=== PATIENT | male | born 1955 | race Caucasian/White ===

== ENCOUNTER 2018-03-05 16:24 | Observation (INO) | payer OTHER ==
[2018-03-05] MEDS ORDERED: ASPIRIN 81 MG TABLET, CHEWABLE PO ONE (16:30)
[2018-03-05 16:40] LABS: ABSOLUTE BASOPHILS # (AUTO) 0.1 10^3/uL (0.0-0.2); ABSOLUTE EOSINOPHILS # (AUTO) 0.3 10^3/uL (0.0-0.6); ABSOLUTE LYMPHOCYTES (AUTO) 3.4 10^3/uL (0.5-4.7); ABSOLUTE MONOCYTES (AUTO) 1.2 10^3/uL (0.1-1.4); ABSOLUTE NEUT (AUTO) 7.6 10^3/uL (1.7-8.2); BASOPHILS % (AUTO) 0.9 % (0-2); EOSINOPHILS % (AUTO) 2.3 % (0-6); HEMATOCRIT 39.6 % (37.9-51.0); HEMOGLOBIN 13.2 g/dL (13.5-17.0); LYMPHOCYTES % (AUTO) 27.1 % (13-45); MEAN CORPUSCULAR HEMOGLOBIN 28.9 pg (27.0-33.4); MEAN CORPUSCULAR HGB CONC 33.3 g/dL (32.0-36.0); MEAN CORPUSCULAR VOLUME 87 fl (80-97); MONOCYTES % (AUTO) 9.4 % (3-13); PLATELET COUNT 292 10^3/uL (150-450); RED BLOOD COUNT 4.56 10^6/uL (4.35-5.55); RED CELL DISTRIBUTION WIDTH 15.8 % (11.5-14.0); SEGMENTED NEUTROPHILS % (AUTO) 60.3 % (42-78); TOTAL CELLS COUNTED % (AUTO) 100 %; WHITE BLOOD COUNT 12.6 10^3/uL (4.0-10.5)
--- NOTE | 2018-03-05 16:41 | ER Document Report ---
ED Syncope and Near Syncope - General Chief Complaint: Near Syncope Stated Complaint: NEAR SYNCOPE Time Seen by Provider: 03/05/18 16:28 Notes: 62-year-old male to emergency department chief complaint of near syncope. Patient states that he is new in town. Moved from [place]. Has not seen a regular doctor. On Coumadin. Had stent placed in his left lower extremity due to vascular occlusions approximately 6 weeks ago. Is supposed to be on Coumadin. Is supposed to be on a bunch of medications. He has stopped some of them but does not know if that is what is going on. He was started on some Wellbutrin. Took it for about 3 or 4 days and he did not like the way it made him feel so stopped it yesterday. Has not felt well for couple of days. Did not feel like eating today but went to a bar and had some beer and felt a little dizzy and felt like he was going to pass out. Denies passing out. Denies any chest pain or shortness of breath. Denies any symptoms at this time. States that he feels better after getting some IV fluids by EMS. TRAVEL OUTSIDE OF THE [place] IN LAST 30 DAYS: No - HPI Symptoms prior to episode: Dizziness, Sweaty - Related Data Allergies/Adverse Reactions: No Known Allergies Allergy (Verified 03/05/18 16:32) Past Medical History - General Information source: Patient - Social History Smoking Status: Unknown if Ever Smoked Frequency of alcohol use: Social Drug Abuse: None Lives with: Spouse/Significant other Family History: Reviewed & Not Pertinent Patient has suicidal ideation: No Patient has homicidal ideation: No Endocrine Medical History: Reports: Hx Diabetes Mellitus Type 2 Renal/ Medical History: Denies: Hx Peritoneal Dialysis Past Surgical History: Reports: Hx Cardiac Catheterization - stent, Hx Cardiac Surgery - CABG Review of Systems - Review of Systems Notes: Constitutional: denies: Chills, Diaphoresis, Fever, Malaise,. Complain of Weakness EENT: denies: Eye discharge, Blurred vision, Tearing, Double vision, Nose congestion, Nose discharge, Throat swelling, Mouth pain Cardiovascular: denies: Palpitations, Heart racing, Orthopnea, Dyspnea, Chest pain. complains of dizziness and almost passing out Respiratory: denies: Cough, Hurts to breathe, Wheezing, Shortness of breath Gastrointestinal: denies: Abdominal pain, Diarrhea, Nausea, Vomiting, Black stools, bright red blood in stool Genitourinary: denies: Burning, Dysuria, Discharge, Frequency, Flank pain, Hematuria Musculoskeletal/extremities:. States that had recent vascular surgery to the left lower extremity. Denies: Joint pain, Joint swelling, Muscle pain, Muscle stiffness, back pain Hematologic/Lymphatic: denies: Anemia, Easy bleeding, Easy bruising, Blood clots Neurological/Psychological: denies: Confusion, Dementia, Depression, Loss of consciousness Skin: No lesions, no masses, no skin breakdown, no abscesses Physical Exam - Vital signs Vitals: Temp Resp Pulse Ox 98.1 F 18 100 03/05/18 16:25 03/05/18 16:25 03/05/18 16:25 Interpretation: Normal - General General appearance: Appears well, Alert - HEENT Head: Normocephalic, Atraumatic Eyes: Normal Pupils: PERRL - Respiratory Respiratory status: No respiratory distress Chest status: Nontender Breath sounds: Normal Chest palpation: Normal - Cardiovascular Rhythm: Regular Heart sounds: Normal auscultation Murmur: No - Abdominal Inspection: Normal Distension: No distension Bowel sounds: Normal Tenderness: Nontender Organomegaly: No organomegaly - Back Back: Normal, Nontender - Extremities General upper extremity: Normal inspection, Nontender, Normal color, Normal ROM , Normal temperature General lower extremity: Other - There are healing incisions bilateral left lower extremity. There is no active drainage noted at this time. Not tense. Posterior tibialis pulses present in the left lower extremity. - Neurological Neuro grossly intact: Yes Cognition: Normal Orientation: AAOx4 Sharee Coma Scale Eye Opening: Spontaneous Sharee Coma Scale Verbal: Oriented Elroy Coma Scale Motor: Obeys Commands Sharee Coma Scale Total: 15 Speech: Normal Motor strength normal: LUE, RUE, LLE, RLE Sensory: Normal - Psychological Associated symptoms: Normal affect, Normal mood - Skin Skin Temperature: Warm Skin Moisture: Dry Skin Color: Normal Course - Re-evaluation Re-evalutation: 03/05/18 18:39 Patient's has a slightly elevated WBC count. Was subtherapeutic on his INR with an INR of 0.9 with recent vascular surgery in the last 6 weeks there was concern that it could potentially have pulmonary embolism causing his episodes of CT angiogram was performed which was unremarkable. Chest x-ray unremarkable. CTA negative for significant pulmonary embolism. Blood pressure transiently low heart rate is 67. Alcohol level was unremarkable. Getting fluid bolus at this time. 03/05/18 19:15 Patient reevaluated. Feeling a little bit better. Based on the fact the patient had a near syncopal episode, as a patient with a recent surgery, has a history of cardiac disease, had transient hypotension. Full more comfortable observing overnight for repeat cardiac labs and at least cardiac monitoring. Will consult with hospitalist for admit at this time. - Vital Signs Vital signs: Temp Pulse Resp BP Pulse Ox 98.1 F 19 132/57 H 99 03/05/18 16:25 03/05/18 19:21 03/05/18 19:21 03/05/18 19:21 - Laboratory Result Diagrams: 03/05/18 16:27 03/05/18 17:10 Laboratory results interpreted by me: 03/05/18 03/05/18 16:27 17:10 WBC 12.6 H Hgb 13.2 L RDW 15.8 H Glucose 153 H - EKG Interpretation by [place] EKG shows normal: Sinus rhythm, Hull, Intervals, QRS Complexes, ST-T Waves Critical Care Note - Critical Care Note Total time excluding time spent on procedures (mins): 35 Comments: hypotension, near syncope Discharge - Discharge Clinical Impression: Syncope, near, Transient hypotension Condition: Good Disposition: ADMITTED OBSERVATION Admitting Provider[facility] Admitted: Telemetry
--- NOTE | 2018-03-05 17:01 | RADIOLOGY REPORT (SQ) ---
EXAM DESCRIPTION: CHEST SINGLE VIEW COMPLETED DATE/TIME: 03/05/2018 4:46 pm REASON FOR STUDY: syncope COMPARISON: None. EXAM PARAMETERS: NUMBER OF VIEWS: One view. TECHNIQUE: Single frontal radiographic view of the chest acquired. RADIATION DOSE: NA LIMITATIONS: None. FINDINGS: LUNGS AND PLEURA: No opacities, masses or pneumothorax. No pleural effusion. MEDIASTINUM AND HILAR STRUCTURES: No masses. Contour normal. HEART AND VASCULAR STRUCTURES: Heart normal in size. Normal vasculature. BONES: No acute findings. HARDWARE: Patient is status post median sternotomy. OTHER: No other significant finding. IMPRESSION: NO ACUTE RADIOGRAPHIC FINDING IN THE CHEST. TECHNICAL DOCUMENTATION: JOB ID: [id number] [employer]- All Rights Reserved Reading location - IP/workstation name: [email or web address]
[2018-03-05 17:02] LABS: INTERNATIONAL RATION (INR) 0.97; PROTHROMBIN TIME 13.4 SEC (11.4-15.4)
[2018-03-05 17:03] LABS: PARTIAL THROMBOPLASTIN TIME 27.5 SEC (23.5-35.8)
[2018-03-05 17:41] LABS: ALANINE AMINOTRANSFERASE 24 U/L (21-72); ALKALINE PHOSPHATASE 66 U/L (38-126); ANION GAP 12 (5-19); ASPARTATE AMINO TRANSFERASE 18 U/L (17-59); BILIRUBIN,DIRECT 0.2 mg/dL (0.0-0.4); BILIRUBIN,TOTAL 0.6 mg/dL (0.2-1.3); BLOOD UREA NITROGEN 12 mg/dL (7-20); CALCIUM 9.8 mg/dL (8.4-10.2); CARBON DIOXIDE 25 mmol/L (22-30); CHLORIDE 103 mmol/L (98-107); CREATINE KINASE 69 U/L (55-170); GLUCOSE 153 mg/dL (75-110); POTASSIUM 4.6 mmol/L (3.6-5.0); SODIUM 140.3 mmol/L (137-145); TOTAL PROTEIN 7.2 g/dL (6.3-8.2)
[2018-03-05 17:44] LABS: ALCOHOL < 10 mg/dL (NONE DETECTED)
[2018-03-05 17:52] LABS: CREATINE KINASE MB 3.25 ng/mL (<4.55)
[2018-03-05 17:54] LABS: TROPONIN I < 0.012 ng/mL
[2018-03-05] MEDS ORDERED: WARFARIN SODIUM 5 MG TABLET PO ONE (17:59)
[2018-03-05] MEDS ORDERED: ENOXAPARIN SODIUM INJ 80 MG/0.8 ML DISP.SYRIN SUBCUT ONE (18:00)
--- NOTE | 2018-03-05 18:24 | RADIOLOGY REPORT (SQ) ---
EXAM DESCRIPTION: CTA CHEST COMPLETED DATE/TIME: 03/05/2018 6:05 pm REASON FOR STUDY: sob, recent sx, near syncope COMPARISON: Chest x-ray 03/05/2018 TECHNIQUE: CT scan of the chest performed using helical scanning technique with dynamic intravenous contrast injection. Images reviewed with lung, soft tissue and bone windows. Reconstructed coronal and sagittal MPR images reviewed. Additional 3 dimensional post-processing performed to develop Maximal Intensity Projection images (GA P). All images stored on PACS. All CT scanners at this facility use dose modulation, iterative reconstruction, and/or weight based d osing when appropriate to reduce radiation dose to as low as reasonably achievable (ALARA). [facility]: Dose Right [facility]: CareDose [facility]: Dose Right [facility]: Teradose 4D [facility]: MatsSoft CONTRAST TYPE AND DOSE: contrast/concentration: Isovue 350.00 mg/ml; Total Contrast Delivered: 76.0 ml; Total Saline Delivered: 80.0 ml Contrast bolus optimized for the pulmonary arteries. Not diagnostic for the aorta. RENAL FUNCTION: BUN 12; creatinine 1.04 RADIATION DOSE: CT Rad equipment meets quality standard of care and radiation dose reduction techniq ues were employed. CTDIvol: 14.6 - 33.1 mGy. DLP: 664 mGy-cm. . LIMITATIONS: None. FINDINGS: LUNGS AND PLEURA: No masses, infiltrates, or pneumothorax. No pleural effusions or pleura l calcifications. AORTA AND GREAT VESSELS: No aneurysm. Contrast bolus not optimized for the aorta. HEART: No pericardial effusion. Coronary stents are present. PULMONARY ARTERIES: No emboli visualized in the main pulmonary arteries or the segmental branches. HILAR AND MEDIASTINAL STRUCTURES: No identified masses or abnormal nodes. HARDWARE: Median sternotomy wires. UPPER ABDOMEN: Limited exam. Status post cholecystectomy. With a dilated common bile duct and pneum obilia. THYROID AND OTHER SOFT TISSUES: No masses. No adenopathy. BONES: No acute or significant finding. 3D MIPS: Confirm above findings. OTHER: No other significant finding. IMPRESSION: 1. No evidence of pulmonary embolus or acute cardiopulmonary abnormality. 2. Limited evaluation of the upper abdomen demonstrates cholecystectomy changes and pneumobilia. COMMENT: Quality ID # [id number]: Final reports with documentation of one or more dose reduction techniques (e.g., Automated exposure control, adjustment of the mA and/or kV according to patient size, use of iterative reconstruction technique) TECHNICAL DOCUMENTATION: JOB ID: [id number] [employer]- All Rights Reserved Reading location - IP/workstation name: [email or web address]
[2018-03-05] MEDS ORDERED: NORMAL SALINE 1000 ML 1,000 ML IV PRN ×2 (18:33→20:49)
[2018-03-05] MEDS ORDERED: PROMETHAZINE HCL 25 MG TABLET PO PRN (19:57)
[2018-03-05] MEDS ORDERED: MAG HYDROX/AL HYDROX/SIMETH SUSP 30 ML UDCUP PO PRN (19:57)
[2018-03-05] MEDS ORDERED: TEMAZEPAM 15 MG CAPSULE PO PRN (19:57)
[2018-03-05] MEDS ORDERED: ACETAMINOPHEN 325 MG TABLET PO PRN (19:57)
--- NOTE | 2018-03-05 20:50 | EKG REPORT ---
SEVERITY:- ABNORMAL ECG - SINUS RHYTHM CONSIDER ANTEROSEPTAL INFARCT : Confirmed by: Antony Cunningham 05-Mar-2018 20:49:45
--- NOTE | 2018-03-05 21:04 | PDOC H&P ---
History of Present Illness Admission Date/PCP: None Patient complains of: near syncope History of Present Illness: EWA MENDOZA is a 62 year old male who comes to the emergency department after an episode of near syncope. Patient tells me that he has not eaten anything since yesterday, he did not have breakfast but took all his medications , after noon decided to go to a bar, he had one beer and felt dizzy, lightheaded , girlfriend noticed him pale. Decided to come to the ED. Patient does not see her regular doctor. Patient is on Coumadin but his inr is supratherapeutic. Patient moved from [place]. States he is on many of medications, on Wellbutrin recently which he is stopped as did not make him feel good. Denies shortness of breath, chest pain, abdominal pain, nausea, vomiting, fever , chills, diarrhea, dysuria, hematuria or frequency. Transient hypotension which improves after IV fluids CTA negative PE, EKG sinus rhythm, first set of troponins negative. Chest x- ray unremarkable Past Medical History Cardiac Medical History: Reports: Coronary Artery Disease - CABG x3, Peripheral Vascular Disease - Left lower extremity stent placed about 2 months ago. Right lower extremity Endocrine Medical History: Reports: Diabetes Mellitus Type 2 Psychiatric Medical History: Reports: Depression Past Surgical History Past Surgical History: Reports: Cardiac Catheterization - stent, Cholecystectomy , Coronary Artery Bypass Graft - x3, Other - Right toe amputation as diabetic complication Social History Information Source: Patient Lives with: Spouse/Significant other Smoking Status: Current Every Day Smoker - Pack per day Frequency of Alcohol Use: Social Drugs: None Family History Family History: Reviewed & Not Pertinent Parental Family History Reviewed: No - He did not meet his parents Children Family History Reviewed: NA Sibling(s) Family History Reviewed.: Yes - Negative Medication/Allergy Allergies/Adverse Reactions: No Known Allergies Allergy (Verified 03/05/18 16:32) Review of Systems Review of Systems: As outlined in the HPI, all others negative Physical Exam Vital Signs: Temp Pulse Resp BP Pulse Ox 98.1 F 14 118/58 L 98 03/05/18 16:25 03/05/18 20:01 03/05/18 20:01 03/05/18 19:41 Intake & Output 03/04/18 03/05/18 03/06/18 06:59 06:59 06:59 Weight 83.2 kg Additional comments: General appearance: Well-developed, alert and cooperative, and appears to be in no acute distress Head: Normocephalic Eyes: PEERL, EOMI, vision is grossly intact. Ears: External auditory canal and tympanic membranes clear, hearing grossly intact. Nose: No nasal discharge. Throat: Oral cavity and pharynx normal. No inflammation, swelling, exudate or lesions. Neck: Neck supple, nontender without lymphadenopathy, masses or thyromegaly. Cardiac: Normal S1 and S2. No S3, S4 or murmurs. Rhythm is regular. There is 1+ edema, cyanosis or pallor. Extremities are warm and well perfused. Capillary refill is less than 2 seconds. No carotid bruits. Lungs: Clear to auscultation and percussion without rales, mild rhonchi, mild wheezing, minimal diminished breath sounds. Not using accessory muscles. Abdomen: Positive bowel sounds. Soft. Nondistended, nontender. No guarding or rebound. No masses. No hepatosplenomegaly Extremities: No significant deformity or joint abnormality. Peripheral pulses intact. Right toe amputation. Scars from surgery both extremities Neurological: Cranial nerves II through XII grossly intact. Strength and sensation symmetric and intact throughout. Reflexes 2+ throughout. Skin: Skin normal color, texture and turgor with no lesions or eruptions, warm and dry. Psychiatric: The mental examination revealed the patient was oriented to person , place, and time. The patient was able to demonstrate good judgment on recent , without hallucinations, abnormal affect or abnormal behaviors. Results Laboratory Results: 03/05/18 16:27 03/05/18 17:10 03/05/18 03/05/18 03/05/18 16:27 16:27 17:10 WBC 12.6 H RBC 4.56 Hgb 13.2 L Hct 39.6 MCV 87 MCH 28.9 MCHC 33.3 RDW 15.8 H Plt Count 292 Seg Neutrophils % 60.3 Lymphocytes % 27.1 Monocytes % 9.4 Eosinophils % 2.3 Basophils % 0.9 Absolute Neutrophils 7.6 Absolute Lymphocytes 3.4 Absolute Monocytes 1.2 Absolute Eosinophils 0.3 Absolute Basophils 0.1 Sodium Cancelled 140.3 Potassium Cancelled 4.6 Chloride Cancelled 103 Carbon Dioxide Cancelled 25 Anion Gap Cancelled 12 BUN Cancelled 12 Creatinine Cancelled 1.04 Est GFR ( Amer) Cancelled > 60 Est GFR (Non-Af Amer) Cancelled > 60 Glucose Cancelled 153 H Calcium Cancelled 9.8 Total Bilirubin Cancelled 0.6 AST Cancelled 18 ALT Cancelled 24 Alkaline Phosphatase Cancelled 66 Total Protein Cancelled 7.2 Albumin Cancelled 4.0 03/05/18 03/05/18 03/05/18 16:27 16:27 17:10 Creatine Kinase Cancelled 69 CK-MB (CK-2) Cancelled Troponin I Cancelled 03/05/18 17:10 Creatine Kinase CK-MB (CK-2) 3.25 Troponin I < 0.012 Impressions: Chest X-Ray 03/05/18 16:30 IMPRESSION: NO ACUTE RADIOGRAPHIC FINDING IN THE CHEST. Chest/Abdomen CTA 03/05/18 17:24 IMPRESSION: 1. No evidence of pulmonary embolus or acute cardiopulmonary abnormality. 2. Limited evaluation of the upper abdomen demonstrates cholecystectomy changes and pneumobilia. Assessment & Plan - Diagnosis (1) Syncope, near Is this a current diagnosis for this admission?: Yes Plan: Patient with near syncopal episode which improved IV fluids. As he has h/o of peripheral vascular disease, CAD, felt safe to keep the patient under observation, on telemetry monitoring, will do cardiac enzymes 3. Most likely this episode has been triggered by his fasting since the day before and has been vasovagal. (2) Transient hypotension Is this a current diagnosis for this admission?: Yes Plan: Improved with IV fluids, will give the patient with IV fluids overnight for good hydration. Orthostatic vital signs were not done in the emergency department and the patient already had 1 L of IV fluids. Will request orthostatic vital signs (3) Diabetes mellitus type 2 in nonobese Is this a current diagnosis for this admission?: Yes Plan: Accu-Cheks q. before meals and at bedtime, insulin sliding scale, hypoglycemia protocol. Will resume home diabetic medication. Hemoglobin A1c in the morning (4) Peripheral vascular disease Is this a current diagnosis for this admission?: Yes Plan: Patient is supposed to be on Coumadin but apparently is noncompliant with his medications. I will reinitiate him on anticoagulation. (5) Smoker Is this a current diagnosis for this admission?: Yes Plan: Will place 21 mg per day of nicotine patch. - Time Time Spent: 30 to 50 Minutes
[2018-03-05 21:50] LABS: APPEARANCE,URINE CLEAR; BILIRUBIN,URINE NEGATIVE (NEGATIVE); COLOR,URINE YELLOW; GLUCOSE, URINE NEGATIVE (NEGATIVE); KETONES,URINE NEGATIVE (NEGATIVE); LEUKOCYTE ESTERASE,URINE NEGATIVE (NEGATIVE); NITRITE,URINE NEGATIVE (NEGATIVE); PROTEIN,URINE NEGATIVE (NEGATIVE); URINE SPECIFIC GRAVITY 1.042; UROBILINOGEN,URINE NEGATIVE mg/dL (<2.0)
[2018-03-05 21:59] LABS: URINE AMPHETAMINES SCREEN NEGATIVE; URINE BARBITURATES SCREEN NEGATIVE; URINE BENZODIAZEPINES SCREEN NEGATIVE; URINE COCAINE SCREEN NEGATIVE; URINE MARIJUANA (THC) SCREEN NEGATIVE; URINE METHADONE SCREEN NEGATIVE; URINE PHENCYCLIDINE SCREEN NEGATIVE
[2018-03-06 03:22] LABS: ANION GAP 8 (5-19); BLOOD UREA NITROGEN 12 mg/dL (7-20); CARBON DIOXIDE 25 mmol/L (22-30); CHLORIDE 108 mmol/L (98-107); GLUCOSE 165 mg/dL (75-110); POTASSIUM 4.1 mmol/L (3.6-5.0); SODIUM 140.9 mmol/L (137-145)
[2018-03-06] MEDS ORDERED: GLUCAGON,HUMAN RECOMB 1 MG INJ IM PRN (03:29)
[2018-03-06] MEDS ORDERED: DEXTROSE 50%-WATER 25 GM/50 ML DISP.SYRIN IV PRN ×2 (03:29)
[2018-03-06] MEDS ORDERED: INSULIN LISPRO 100 UNIT/ML 3 ML VIAL SUBCUT PRN (03:29)
[2018-03-06] MEDS ORDERED: DEXTROSE 40% GEL 15 GM TUBE PO PRN ×2 (03:29)
[2018-03-06] MEDS ORDERED: ENOXAPARIN SODIUM INJ 40 MG/0.4 ML DISP.SYRIN SUBCUT SCH (10:00)
[2018-03-06] MEDS: NORMAL SALINE 1000 ML 1,000 ML IV PRN (14:47)
--- NOTE | 2018-03-06 17:50 | PDOC PROGRESS REPORT ---
Subjective Progress Note for:: 03/06/18 Subjective:: 62 y.o. M who presented to the ED 03/05 for a near syncopal episode. PMH includes CAD, CABG x3 (ASA and plavix), PAD - Left lower extremity stent placed about 2 months ago (Coumadin). Right lower extremity bypass graft "years ago." The patient was seen this morning on rounds, states he is feeling 'much better' following IVF resuscitation. Syncopal episode believed to be related to anorexia 24 hours followed by consumption of EtOH. Unfortunately, the patient' s INR is subtherapeutic (0.94). The patient states he last had his INR checked 3 weeks ago in [place] and his levels were 'normal.' Since moving to [place], [place] 3 weeks ago, the patient has not established himself with a primary care doctor. The patient admits that he is close to running out of his Coumadin but is very adamant that he has been taking the medication as directed. Plan to discharge the patient home on Lovenox to bridge to therapeutic Coumadin dosing. Will require assistance from discharge planning because the patient previously had Medicaid when living in [place], and his insurance coverage did not transfer to [place]. Reason For Visit: NEAR SYNCOPE Physical Exam Vital Signs: Temp Pulse Resp BP Pulse Ox 97.7 F 63 16 135/49 H 99 03/06/18 15:23 03/06/18 15:23 03/06/18 15:23 03/06/18 15:23 03/06/18 15:23 Intake & Output 03/05/18 03/06/18 03/07/18 06:59 06:59 06:59 Intake Total 1240 Output Total 675 300 Balance -675 940 General appearance: PRESENT: no acute distress, well-developed, well-nourished Head exam: PRESENT: atraumatic, normocephalic Eye exam: PRESENT: conjunctiva pink, EOMI, PERRLA. ABSENT: scleral icterus Ear exam: PRESENT: normal external ear exam Mouth exam: PRESENT: moist, tongue midline Neck exam: ABSENT: carotid bruit, JVD, lymphadenopathy, thyromegaly Respiratory exam: PRESENT: clear to auscultation wilfredo. ABSENT: rales, rhonchi, wheezes Cardiovascular exam: PRESENT: RRR. ABSENT: diastolic murmur, rubs, systolic murmur Pulses: PRESENT: normal dorsalis pedis pul Vascular exam: PRESENT: normal capillary refill GI/Abdominal exam: PRESENT: normal bowel sounds, soft. ABSENT: distended, guarding, mass, organolmegaly, rebound, tenderness Rectal exam: PRESENT: deferred Extremities exam: PRESENT: full ROM. ABSENT: calf tenderness, clubbing, pedal edema Musculoskeletal exam: PRESENT: ambulatory, full ROM Neurological exam: PRESENT: alert, awake, oriented to person, oriented to place , oriented to time, oriented to situation Psychiatric exam: PRESENT: appropriate affect, normal mood. ABSENT: homicidal ideation, suicidal ideation Skin exam: PRESENT: dry, intact, warm. ABSENT: cyanosis, rash Results Laboratory Results: 03/06/18 02:40 03/05/18 03/06/18 20:51 02:40 Sodium 140.9 Potassium 4.1 Chloride 108 H Carbon Dioxide 25 Anion Gap 8 BUN 12 Creatinine 0.74 Est GFR ( Amer) > 60 Est GFR (Non-Af Amer) > 60 Glucose 165 H Calcium 9.0 Urine Color YELLOW Urine Appearance CLEAR Urine pH 5.0 Ur Specific Joice 1.042 Urine Protein NEGATIVE Urine Glucose (UA) NEGATIVE Urine Ketones NEGATIVE Urine Blood NEGATIVE Urine Nitrite NEGATIVE Ur Leukocyte Esterase NEGATIVE Urine WBC (Auto) 1 Urine RBC (Auto) 0 03/06/18 03/06/18 03/06/18 02:40 13:22 13:22 Troponin I < 0.012 < 0.012 NT-Pro-B Natriuret Pep 402 Impressions: Chest X-Ray 03/05/18 16:30 IMPRESSION: NO ACUTE RADIOGRAPHIC FINDING IN THE CHEST. Chest/Abdomen CTA 03/05/18 17:24 IMPRESSION: 1. No evidence of pulmonary embolus or acute cardiopulmonary abnormality. 2. Limited evaluation of the upper abdomen demonstrates cholecystectomy changes and pneumobilia. Status: Imported from PACS Assessment & Plan - Diagnosis (1) Syncope, near Is this a current diagnosis for this admission?: Yes Plan: Witnessed near syncopal episode Etiology believed to be secondary to anorexia times 24 hours followed by EtOH consumption CT head negative Significant improvement with IVF resuscitation Normal orthostatic vital signs (2) Subtherapeutic anticoagulation Is this a current diagnosis for this admission?: Yes Plan: INR 9.4 Patient states he takes his Coumadin as directed Resume home dosing schedule Initiate Lovenox SC 1mg/kg Will require SC Lovenox upon discharge to bridge to therapeutic Coumadin level Will require daily/QOD INR checks until therapeutic Requesting assistance from discharge planning as patient does not have insurance Barring any complications, plan to discharge home tomorrow (3) Peripheral vascular disease Is this a current diagnosis for this admission?: Yes Plan: Patient endorses history of PAD History of bypass graft in RLE Recent stent placement in LLE in December 2017 at [facility] in [place] Continue home dose warfarin - Time Time Spent with patient: 25-34 minutes Medications reviewed and adjusted accordingly: Yes Anticipated discharge: Home Within: within 24 hours - Inpatient Certification Based on my medical assessment, after consideration of the patient's comorbidities, presenting symptoms, or acuity I expect that the services needed warrant INPATIENT care.: Yes I certify that my determination is in accordance with my understanding of Medicare's requirements for reasonable and necessary INPATIENT services [42 CFR 412.3e].: Yes Medical Necessity: Risk of Complication if Not Cared For in Hospital - Plan Summary Plan Summary: In need of assistance from discharge planning services to set this patient up with SC Lovenox injections to bridge to therapeutic INR on Coumadin. While on Lovenox, patient will require daily/QOD INR checks by laboratory staff. Patient currently does not have health insurance as he just moved to [place] from [place], where he was covered under the [employer] Medicaid. If the patient is not able to afford [place] Lovenox, then he will need to remain inpatient until his INR levels are therapeutic.
[2018-03-06] MEDS: ENOXAPARIN SODIUM INJ 80 MG/0.8 ML DISP.SYRIN SUBCUT SCH (21:27)
[2018-03-07] MEDS: NORMAL SALINE 1000 ML 1,000 ML IV PRN (04:34)
[2018-03-07 05:32] LABS: HEMATOCRIT 35.6 % (37.9-51.0); MEAN CORPUSCULAR HEMOGLOBIN 28.9 pg (27.0-33.4); MEAN CORPUSCULAR HGB CONC 33.8 g/dL (32.0-36.0); MEAN CORPUSCULAR VOLUME 86 fl (80-97); PLATELET COUNT 210 10^3/uL (150-450); RED BLOOD COUNT 4.16 10^6/uL (4.35-5.55); RED CELL DISTRIBUTION WIDTH 15.9 % (11.5-14.0); WHITE BLOOD COUNT 9.1 10^3/uL (4.0-10.5)
--- NOTE | 2018-03-07 10:31 | Physician Advisory Note ---
Physician Advisor ProgressNote .: Pursuant to the plan for [facility], I have reviewed the medical record for this patient. Physician Advisor Statement: Pt w/near-syncope. Received 1 dose warfarin on 03/05, none since. Home meds list includes Coreg & warfarin, so persistently low-nl HRs may be a SE of beta pau rather than an intrinsic problem in setting of initial hypotension. Status: [place], not yet with payer source in [place]. Documentation seems to indicate that pt was ready for d/c on 03/06, but needing DCP arrangements in place/confirmed w/free clinic (not open on Sun.s) to be sure he would be able to access needed meds (Lovenox, ...) that would keep him safe outside the hospital. Low intensity of service (NS @75, Lovenox). - Sounds most appropriate for Obs initially. - If there is a clinical issue today that requires him to stay in hospital for tx/monitoring (something that couldn't be taken care of w/daily clinic/outpt visits & outpt meds), please document it explicitly, and then may consider change to Inpatient status. Thanks! CK
[2018-03-07] MEDS: ENOXAPARIN SODIUM INJ 80 MG/0.8 ML DISP.SYRIN SUBCUT SCH (10:33)
[2018-03-07 16:41] VITALS: BP 142/49
== END 2018-03-07 17:18 | disposition home or self-care (01) ==
LOC: ER 16:24 → EH 20:15 → 5 03-06 11:03
PROVIDERS: ADMIT Internal Medicine; ATTEND Internal Medicine
DX: R55 Syncope and collapse (principal); I95.89 Other hypotension; I25.10 Atherosclerotic heart disease of native coronary artery without angina pectoris; E11.51 Type 2 diabetes mellitus with diabetic peripheral angiopathy without gangrene; F17.210 Nicotine dependence, cigarettes, uncomplicated; R79.1 Abnormal coagulation profile; Z91.14 Patient's other noncompliance with medication regimen; Z95.1 Presence of aortocoronary bypass graft; Z95.828 Presence of other vascular implants and grafts; Z89.421 Acquired absence of other right toe(s)
CPT/HCPCS: 93005; 99291; 36415 ×3; 82553; 82962 ×2; 80307 ×2; 82550; 85025; 85027; 85610; 85730; 80048; 80053; 81001; 84484 ×2; 83036; 83880; 71045; 71275; 93010; G0378 ×4; J1650 ×4; J7030 ×3

== ENCOUNTER → 2018-05-10 | Outpatient (CLI) | payer OTHER ==
--- NOTE | 2018-05-11 17:12 | XCELERA REPORT ---
[address] [address] Lower Extremity Arterial Evaluation Name: EWA MENDOZA Age: 62 yrs Gender: Male : 1955 Patient Status: Outpatient Patient Location: RAD Study Date: 05/10/2018 10:51 AM Procedure: A color flow and duplex scan of the lower extremity arteries was performed bilaterally with velocity and waveform anaylsis. Ankle brachial indicies performed. Reason For Study: PVD Ordering Physician: KERMIT STYLES Performed By: Zara Avila Measurements and Calculations Right Left Prox PFA PSV 198.9 85.2 cm/sec Prox SFA PSV 53.7 55.8 cm/sec Mid SFA PSV 59.4 52.5 cm/sec Dist SFA PSV 73.5 60.5 cm/sec Prox Pop A PSV 65.7 40.0 cm/sec Mid NAN PSV 21.0 29.1 cm/sec Prox MANAGER UNION PSV 25.8 cm/sec Mid MANAGER UNION PSV 44.0 cm/sec Right Side Arterial Evaluation Normal velocity and triphasic waveforms noted in the Common Femoral artery. Biphasic with low normal velocities to the Popliteal. Monophasic in the infrageniculate vessels. artery. 20-49 % stenosis noted, at the Femoral artery. Sequential changes. Ankle Brachial index 0.88. Left Side Arterial Evaluation Normal velocity and biphasic waveforms noted in the Common Femoral artery . Biphasic with mildly diminished velocities to the infrageniculate vessels. Monophasic with severely diminished waveform in the Dorsalis Pedis. 20-49 % stenosis at the Femoral artery. With sequential changes. Ankle Brachial index is 0.92. Interpretation Summary Severe hemodynamically significant lesions in the right lower extremity only, on duplex imaging, at rest. Moderate hemodynamically significant lesions in the left lower extremity only, on duplex imaging, at rest. MICHEAL's suggest mild disease and are not concordant with the duplex findings. : KERMIT STYLES > Kermti Styles
== END ==
LOC: RAD 10:44
PROVIDERS: ATTEND Surgery
DX: I73.9 Peripheral vascular disease, unspecified (principal)
CPT/HCPCS: 93925

== ENCOUNTER 2018-06-30 16:28 | Emergency (ER) | payer OTHER ==
[2018-06-30] MEDS ORDERED: IPRATROPIUM/ALBUTEROL 0.5-2.5 MG/3 ML AMPUL NEB ONE (16:42)
--- NOTE | 2018-06-30 16:47 | ER Document Report ---
ED General - General Stated Complaint: LOWER BACK PAIN Time Seen by Provider: 06/30/18 16:34 TRAVEL OUTSIDE OF THE [place] IN LAST 30 DAYS: No - HPI Notes: Patient is a 62-year-old male with a history of type 2 diabetes, chronic back pain, mental health disorder, coronary artery disease status post CABG, hypertension who presents to the ED for evaluation of right upper quadrant/side pain that occurred prior to arrival. Patient states that he was in the shower when he started having back pain which she has had before. Patient states that he took 2 tramadol and lay down for 45 minutes. Patient states that he then moved to the couch. When he was transitioning from the couch and walking to his son room patient states that his legs gave out on him, but he did not have any loss of consciousness/dizziness/lightheadedness. Patient states that he was in pain at that time during the occurrence. Patient states that he did feel weak and when EMS arrived they noticed that he had a low blood pressure which corrected soon thereafter from 67/41-140 . Patient states that he was placed on a Z-Nigel and prednisone 2 days ago for upper respiratory infection, but did not have a chest x-ray performed. Patient states that he does continue to smoke and has intermittent wheezing as well. He is otherwise been eating and drinking without any difficulties. He has been urinating normally and having normal bowel movements. Patient states that his pains have completely resolved and he is feeling back to normal. Significant other does state that patient has had episodes of dementia and delusions. He is currently on Zyprexa. No other concerns or complaints. Denies any headache, fever, head injury, neck pain, changes in vision/speech/mentation/hearing, URI, sore throat, chest pain, palpitations, syncope, cough, shortness of breath, wheeze, dyspnea, nausea/vomiting/diarrhea, urinary retention, dysuria, hematuria, loss of control of bowel or bladder, numbness/tingling, saddle anesthesia, muscle paralysis/weakness, or rash. - Related Data Allergies/Adverse Reactions: No Known Allergies Allergy (Verified 03/05/18 16:32) Past Medical History - Social History Smoking Status: Current Every Day Smoker Family History: Reviewed & Not Pertinent - Past Medical History Cardiac Medical History: Reports: Hx Coronary Artery Disease - CABG x3, Hx P eripheral Vascular Disease - Left lower extremity stent placed about 2 months ago. Right lower extremity Endocrine Medical History: Reports: Hx Diabetes Mellitus Type 2 Renal/ Medical History: Denies: Hx Peritoneal Dialysis Psychiatric Medical History: Reports: Hx Depression Past Surgical History: Reports: Hx Cardiac Catheterization - stent, Hx Cardiac Surgery - CABG, Hx Cholecystectomy, Hx Coronary Artery Bypass Graft - x3, Other - Right toe amputation as diabetic complication Review of Systems - Review of Systems -: Yes All other systems reviewed and negative Physical Exam - Vital signs Vitals: Temp Pulse Resp BP Pulse Ox 98.1 F 80 16 144/78 H 97 06/30/18 16:47 06/30/18 16:47 06/30/18 16:47 06/30/18 16:47 06/30/18 16:47 - Notes Notes: PHYSICAL EXAMINATION: GENERAL: Well-appearing, well-nourished and in no acute distress. A&Ox4. Answers questions appropriately. HEAD: Atraumatic, normocephalic. Non-tender. EYES: Pupils equal round and reactive to light, extraocular movements intact, sclera anicteric, conjunctiva are normal. No nystagmus. vis mckeon intact. ENT: EAC clear b/l. TM's intact b/l without erythema, fluid, or perforation. Nares patent and without discharge. oropharynx clear without exudates. No tonsilar hypertrophy or erythema. Moist mucous membranes. No sinus tenderness. NECK: Normal range of motion, supple without lymphadenopathy. No rigidity/ meningismus. No midline tenderness. LUNGS: wheezing b/l. no crackles. HEART: Regular rate and rhythm without murmurs, rubs, gallops. ABDOMEN: Soft, nontender, nondistended abdomen. No guarding, no rebound. Normal bowel sounds present. No CVA tenderness bilaterally. Healy neg. No tenderness at McBurney point. Musculoskeletal: Ext's b/l: FROM to passive/active. Strength 5+/5. No deficits noted. No bony tenderness of extremities. Back: FROM to passive/active. Strength 5+/5. No vertebral point tenderness, stepoffs, or deformities. No other bony tenderness, erythema, swelling, or ecchymosis. SLR negative b/l. No SI jt tenderness. No foot drop Extremities: No cyanosis, clubbing, or edema b/l. Peripheral pulses 2+. Capillary refill less than 2 seconds. NEUROLOGICAL: NIH 0. GCS 15. Cranial nerves grossly intact. Normal speech, normal gait. Normal sensory, motor exams. Reflexes 2+ b/l. SATURNINO's negative. Pronator drift negative. Heel/oates, finger/nose wnl. PSYCH: Normal mood, normal affect. SKIN: Warm, Dry, normal turgor, no rashes or lesions noted. Course - Re-evaluation Re-evalutation: 06/30/18 18:47 Patient is an afebrile, well-hydrated, 62-year-old male who presents to the ED with nonspecific right upper quadrant/right back pain that has been since resolved. Vitals are acceptable without any significant tachycardia, tachypnea, hypoxia, hypotension. Patient has not had any recurrence of his symptoms. PE is otherwise unremarkable for any focal neurological deficits. Patient's abdomen is soft and nontender. CBC does show mildly elevated white blood cell count. CMP has minimally elevated LFTs without elevation in his bili. Lipase and chest x-ray are unremarkable. CT scan did show some air in his hepatic ducts which I did review with the surgeon. He does not believe that the labs and CT finding is of any clinical significance due to the normal bilirubin. I also reviewed with Dr. Hernandez who is in agreement with disposition and plan. No further labs or imaging warranted at this time. Pt has never had any CP, SOB, PEREZ. Patient is nontoxic-appearing and is tolerating p.o. without difficulty. Low suspicion/risk for cauda equina, disc herniation causing severe spinal stenosis, spinal abscess, meningitis, acute appendicitis, bowel obstruction, acute cholecystitis, perforated diverticulitis, incarcerated hernia, pancreatitis, perforated ulcer, peritonitis, sepsis, testicular torsion, or other systemic emergent condition at this time. Patient is aware that his condition can change from initial presentation and he needs to monitor symptoms closely and seek medical attention if any acute changes. Conservative measures otherwise for symptoms. Recheck with PCM in 3-5 days. Return to the ED with any worsening/concerning symptoms otherwise as reviewed in discharge. Patient is in agreement. - Vital Signs Vital signs: Temp Pulse Resp BP Pulse Ox 98.1 F 80 16 144/78 H 97 06/30/18 16:47 06/30/18 16:47 06/30/18 16:47 06/30/18 16:47 06/30/18 16:47 - Laboratory Result Diagrams: 06/30/18 15:48 06/30/18 15:48 Laboratory results interpreted by me: 06/30/18 06/30/18 06/30/18 15:48 15:48 18:09 WBC 15.8 H Hgb 12.6 L RDW 15.2 H Absolute Neutrophils 11.9 H Sodium 136.8 L Potassium 5.1 H Carbon Dioxide 31 H BUN 27 H Glucose 250 H AST 111 H ALT 87 H Urine Glucose (UA) >=500 H Discharge - Discharge Clinical Impression: Right upper quadrant abdominal pain Thoracic back pain Qualifiers: Chronicity: acute Back pain laterality: right Qualified Code(s): M54.6 - Pain in thoracic spine Condition: Stable Disposition: HOME, SELF-CARE Instructions: Abdominal Pain ([facility]) Additional Instructions: Maintain adequate fluid and food intake healthy diet tylenol/Motrin if needed Monitor for any worsening symptoms Make sure you are staying hydrated enough to urinate and have normal BM's Recheck with your PCM in 2-3 days Return to the ED with any worsening symptoms and/or development of fever, headache, changes in behavior/mentation/vision/speech, chest pain, palpitations, syncope, shortness of breath, trouble breathing, abdominal pain, n/v/d, blood in stool/urine, loss of control of bowel/bladder, urinary retention, muscle weakness/paralysis, saddle anesthesia, numbness/tingling, or other worsening symptoms that are concerning to you. Forms: Elevated Blood Pressure Referrals: REX WEINSTEIN MD [ACTIVE STAFF] - Follow up as needed BEAR HOWARD MD [ACTIVE STAFF] - Follow up as needed
[2018-06-30 16:55] LABS: ABSOLUTE BASOPHILS # (AUTO) 0.1 10^3/uL (0.0-0.2); ABSOLUTE EOSINOPHILS # (AUTO) 0.1 10^3/uL (0.0-0.6); ABSOLUTE LYMPHOCYTES (AUTO) 2.5 10^3/uL (0.5-4.7); ABSOLUTE MONOCYTES (AUTO) 1.1 10^3/uL (0.1-1.4); ABSOLUTE NEUT (AUTO) 11.9 10^3/uL (1.7-8.2); BASOPHILS % (AUTO) 0.3 % (0-2); EOSINOPHILS % (AUTO) 0.7 % (0-6); HEMATOCRIT 38.2 % (37.9-51.0); HEMOGLOBIN 12.6 g/dL (13.5-17.0); LYMPHOCYTES % (AUTO) 16.1 % (13-45); MEAN CORPUSCULAR HEMOGLOBIN 28.5 pg (27.0-33.4); MEAN CORPUSCULAR HGB CONC 33.1 g/dL (32.0-36.0); MEAN CORPUSCULAR VOLUME 86 fl (80-97); MONOCYTES % (AUTO) 7.2 % (3-13); PLATELET COUNT 323 10^3/uL (150-450); RED BLOOD COUNT 4.43 10^6/uL (4.35-5.55); RED CELL DISTRIBUTION WIDTH 15.2 % (11.5-14.0); SEGMENTED NEUTROPHILS % (AUTO) 75.7 % (42-78); TOTAL CELLS COUNTED % (AUTO) 100 %; WHITE BLOOD COUNT 15.8 10^3/uL (4.0-10.5)
--- NOTE | 2018-06-30 17:08 | RADIOLOGY REPORT (SQ) ---
EXAM DESCRIPTION: CHEST 2 VIEWS COMPLETED DATE/TIME: 06/30/2018 4:54 pm REASON FOR STUDY: cough/wheeze COMPARISON: None. EXAM PARAMETERS: NUMBER OF VIEWS: two views TECHNIQUE: Digital Frontal and Lateral radiographic views of the chest acquired. RADIATION DOSE: NA LIMITATIONS: none FINDINGS: LUNGS AND PLEURA: No opacities, masses or pneumothorax. No pleural effusion. MEDIASTINUM AND HILAR STRUCTURES: No masses or contour abnormalities. HEART AND VASCULAR STRUCTURES: Heart normal size. No evidence for failure. BONES: No acute findings. HARDWARE: None in the chest. OTHER: No other significant finding. IMPRESSION: NO ACUTE RADIOGRAPHIC FINDING IN THE CHEST. TECHNICAL DOCUMENTATION: JOB ID: [id number] [employer]- All Rights Reserved Reading location - IP/workstation name: [email or web address]
[2018-06-30 17:12] LABS: ALANINE AMINOTRANSFERASE 87 U/L (21-72); ALBUMIN 3.8 g/dL (3.5-5.0); ALKALINE PHOSPHATASE 75 U/L (38-126); ANION GAP 8 (5-19); ASPARTATE AMINO TRANSFERASE 111 U/L (17-59); BILIRUBIN,DIRECT 0.3 mg/dL (0.0-0.4); BILIRUBIN,TOTAL 0.5 mg/dL (0.2-1.3); BLOOD UREA NITROGEN 27 mg/dL (7-20); CALCIUM 10.1 mg/dL (8.4-10.2); CARBON DIOXIDE 31 mmol/L (22-30); CHLORIDE 98 mmol/L (98-107); GLUCOSE 250 mg/dL (75-110); LIPASE 45.7 U/L (23-300); POTASSIUM 5.1 mmol/L (3.6-5.0); SODIUM 136.8 mmol/L (137-145); TOTAL PROTEIN 6.7 g/dL (6.3-8.2)
--- NOTE | 2018-06-30 18:07 | RADIOLOGY REPORT (SQ) ---
EXAM DESCRIPTION: CT ABD/PELVIS WITH IV ONLY COMPLETED DATE/TIME: 06/30/2018 5:50 pm REASON FOR STUDY: Rt abd pain, h/o hypotensive episode COMPARISON: None. TECHNIQUE: CT scan of the abdomen and pelvis performed using helical scanning technique with dynamic intravenous contrast injection. No oral contrast. Images reviewed with lung, soft tissue, and bone windows. Reconstructed coronal and sagittal MPR images reviewed. Delayed images for evaluation of the urinary system also acquired. All images stored on PACS. All CT scanners at this facility use dose modulation, iterative reconstruction, and/or weight based d osing when appropriate to reduce radiation dose to as low as reasonably achievable (ALARA). [facility]: Dose Right [facility]: CareDose [facility]: Dose Right [facility]: Teradose 4D [facility]: Trust Mico CONTRAST TYPE AND DOSE: contrast/concentration: Isovue 350.00 mg/ml; Total Contrast Delivered: 90.0 ml; Total Saline Delivered: 70.0 ml RENAL FUNCTION: Not recorded here. Refer to instrument technologist's record. RADIATION DOSE: CT Rad equipment meets quality standard of care and radiation dose reduction techniq ues were employed. CTDIvol: 6.4 - 8.9 mGy. DLP: 809 mGy-cm.. LIMITATIONS: None. FINDINGS: LOWER CHEST: No significant findings. No nodules or infiltrates. LIVER: Normal size. No masses. There is air in the bile ducts. SPLEEN: Normal size. No focal lesions. PANCREAS: No masses. No significant calcifications. No adjacent inflammation or peripancreatic fluid collections. Pancreatic duct not dilated. GALLBLADDER: There is surgical clips in the gallbladder fossa. ADRENAL GLANDS: No significant masses or asymmetry. RIGHT KIDNEY AND URETER: No solid masses. No significant calcifications. No hydronephrosis or hyd roureter. LEFT KIDNEY AND URETER: No solid masses. No significant calcifications. No hydronephrosis or hydr oureter. AORTA AND VESSELS: No aneurysm. Atherosclerosis. There is considerable atherosclerosis in the SMA. RETROPERITONEUM: No retroperitoneal adenopathy, hemorrhage or masses. BOWEL AND PERITONEAL CAVITY: No masses or inflammatory changes. No free fluid or peritoneal masses. APPENDIX: Not identified. PELVIS: No mass. No free fluid. Normal bladder. ABDOMINAL WALL: No masses. No hernias. BONES: No significant or acute findings. OTHER: No other significant finding. IMPRESSION: There is air in the hepatic ducts. Has the patient had a sphincterotomy? There is atherosclerosis. TECHNICAL DOCUMENTATION: JOB ID: [id number] Quality ID # [id number]: Final reports with documentation of one or more dose reduction techniques (e.g., Au tomated exposure control, adjustment of the mA and/or kV according to patient size, use of iterative reconstruction technique) 2010 [employer]- All Rights Reserved Reading location - IP/workstation name: [email or web address]
[2018-06-30 18:34] LABS: APPEARANCE,URINE CLEAR; BILIRUBIN,URINE NEGATIVE (NEGATIVE); COLOR,URINE YELLOW; GLUCOSE, URINE >=500 mg/dL (NEGATIVE); KETONES,URINE NEGATIVE (NEGATIVE); LEUKOCYTE ESTERASE,URINE NEGATIVE (NEGATIVE); NITRITE,URINE NEGATIVE (NEGATIVE); PROTEIN,URINE NEGATIVE (NEGATIVE); URINE SPECIFIC GRAVITY 1.026; UROBILINOGEN,URINE NEGATIVE mg/dL (<2.0)
[2018-06-30 19:24] VITALS: BP 148/61
== END 2018-06-30 19:24 | disposition home or self-care (01) ==
LOC: ER 16:28
DX: R10.11 Right upper quadrant pain (principal); M54.6 Pain in thoracic spine; F17.200 Nicotine dependence, unspecified, uncomplicated; E11.9 Type 2 diabetes mellitus without complications; Z95.1 Presence of aortocoronary bypass graft; Z90.49 Acquired absence of other specified parts of digestive tract
CPT/HCPCS: 94640; 99284; 36415; 83690; 85025; 80053; 81001; 71046; 74177; J7620

== ENCOUNTER 2019-01-07 11:40 | Emergency (ER) | payer OTHER, MEDICARE ==
--- NOTE | 2019-01-07 12:14 | ER Document Report ---
ED Medical Screen (RME) - General Chief Complaint: Abdominal Pain Stated Complaint: ABDOMINAL PAIN Time Seen by Provider: 01/07/19 12:09 Primary Care Provider: KERMIT HANDY MD [Primary Care Provider] - Follow up as needed Mode of Arrival: Medic Information source: Patient Notes: Patient presents emergency department with complaints of right upper quad abdominal pain with diarrhea that started approximately 1/2 hours ago. Reports it woke him up from his sleep. Reports the pain is sharp when it comes makes him break out in a cold sweat. Denies shortness of breath, chest pain, fever vomiting. Denies recent trip denies trauma. Patient is a diabetic. I have greeted and performed a rapid initial assessment of this patient. A comprehensive ED assessment and evaluation of the patient, analysis of test results and completion of the medical decision making process will be conducted by additional ED providers. Dictation of this chart was performed using voice recognition software; therefore, there may be some unintended grammatical errors. TRAVEL OUTSIDE OF THE [place] IN LAST 30 DAYS: No - Related Data Allergies/Adverse Reactions: No Known Allergies Allergy (Verified 01/07/19 11:43) Past Medical History - Past Medical History Cardiac Medical History: Reports: Hx Coronary Artery Disease - CABG x3, Hx Hypertension, Hx Peripheral Vascular Disease - Left lower extremity stent placed about 2 months ago. Right lower extremity Endocrine Medical History: Reports: Hx Diabetes Mellitus Type 2 Renal/ Medical History: Denies: Hx Peritoneal Dialysis Psychiatric Medical History: Reports: Hx Depression Past Surgical History: Reports: Hx Cardiac Catheterization - stent, Hx Cardiac Surgery - CABG, Hx Cholecystectomy, Hx Coronary Artery Bypass Graft - x3, Other - Right toe amputation as diabetic complication Physical Exam - Vital signs Vitals: Temp Pulse Resp BP Pulse Ox 97.5 F 66 16 98/47 L 95 01/07/19 11:58 01/07/19 11:58 01/07/19 11:58 01/07/19 11:58 01/07/19 11:58 Course - Vital Signs Vital signs: Temp Pulse Resp BP Pulse Ox 97.5 F 66 16 98/47 L 95 01/07/19 11:58 01/07/19 11:58 01/07/19 11:58 01/07/19 11:58 01/07/19 11:58 Doctor's Discharge - Discharge Referrals: KERMIT HANDY MD [Primary Care Provider] - Follow up as needed
[2019-01-07 12:39] LABS: ABSOLUTE BASOPHILS # (AUTO) 0.1 10^3/uL (0.0-0.2); ABSOLUTE EOSINOPHILS # (AUTO) 0.2 10^3/uL (0.0-0.6); ABSOLUTE LYMPHOCYTES (AUTO) 2.5 10^3/uL (0.5-4.7); ABSOLUTE NEUT (AUTO) 7.3 10^3/uL (1.7-8.2); BASOPHILS % (AUTO) 1.3 % (0-2); HEMATOCRIT 44.9 % (37.9-51.0); HEMOGLOBIN 15.2 g/dL (13.5-17.0); LYMPHOCYTES % (AUTO) 22.1 % (13-45); MEAN CORPUSCULAR HEMOGLOBIN 29.3 pg (27.0-33.4); MEAN CORPUSCULAR HGB CONC 33.8 g/dL (32.0-36.0); MEAN CORPUSCULAR VOLUME 87 fl (80-97); MONOCYTES % (AUTO) 9.1 % (3-13); PLATELET COUNT 269 10^3/uL (150-450); RED BLOOD COUNT 5.19 10^6/uL (4.35-5.55); RED CELL DISTRIBUTION WIDTH 15.6 % (11.5-14.0); SEGMENTED NEUTROPHILS % (AUTO) 65.5 % (42-78); TOTAL CELLS COUNTED % (AUTO) 100 %; WHITE BLOOD COUNT 11.1 10^3/uL (4.0-10.5)
[2019-01-07 12:51] LABS: ALANINE AMINOTRANSFERASE 76 U/L (21-72); ALBUMIN 4.2 g/dL (3.5-5.0); ALKALINE PHOSPHATASE 116 U/L (38-126); ANION GAP 9 (5-19); ASPARTATE AMINO TRANSFERASE 161 U/L (17-59); BILIRUBIN,DIRECT 0.4 mg/dL (0.0-0.4); BILIRUBIN,TOTAL 1.6 mg/dL (0.2-1.3); BLOOD UREA NITROGEN 14 mg/dL (7-20); CALCIUM 9.8 mg/dL (8.4-10.2); CARBON DIOXIDE 28 mmol/L (22-30); CHLORIDE 103 mmol/L (98-107); GLUCOSE 136 mg/dL (75-110); POTASSIUM 4.3 mmol/L (3.6-5.0); SODIUM 139.6 mmol/L (137-145); TOTAL PROTEIN 7.2 g/dL (6.3-8.2)
[2019-01-07] MEDS ORDERED: DICYCLOMINE HCL INJ 20 MG/2 ML AMPULE IM ONE (13:45)
--- NOTE | 2019-01-07 13:45 | ER Document Report ---
ED General - General Chief Complaint: Abdominal Pain Stated Complaint: ABDOMINAL PAIN Time Seen by Provider: 01/07/19 12:09 Primary Care Provider: KERMIT HANDY MD [ACTIVE STAFF] - Follow up as needed Mode of Arrival: Medic TRAVEL OUTSIDE OF THE [place] IN LAST 30 DAYS: No - HPI Notes: Patient is a 63-year-old gentleman who presents to the emergency department for evaluation. He got home at about 4:30 AM, was picking up a family member in [place]. He states that around 6 AM he had 3 episodes of diarrhea. He denies any melena or hematochezia. He states he was finally able to go to sleep, but woke up suddenly at 10 AM with sharp right upper quadrant pain. He states that the pain was a 10 out of a 10 initially, it is now 3 out of 10. He denies any fevers or chills. No nausea or vomiting. Normal appetite. No foreign travel, no recent antibiotics, no abnormal ingestions. He did take some Imodium for the diarrhea earlier, and it seems to have resolved. - Related Data Allergies/Adverse Reactions: No Known Allergies Allergy (Verified 01/07/19 11:43) Past Medical History - General Information source: Patient - Social History Smoking Status: Current Every Day Smoker Frequency of alcohol use: Rare Drug Abuse: None Family History: Reviewed & Not Pertinent Patient has suicidal ideation: No Patient has homicidal ideation: No - Past Medical History Cardiac Medical History: Reports: Hx Coronary Artery Disease - CABG x3, Hx Hypertension, Hx Peripheral Vascular Disease - Left lower extremity stent placed about 2 months ago. Right lower extremity Endocrine Medical History: Reports: Hx Diabetes Mellitus Type 2 Renal/ Medical History: Denies: Hx Peritoneal Dialysis Psychiatric Medical History: Reports: Hx Depression Past Surgical History: Reports: Hx Cardiac Catheterization - stent, Hx Cardiac Surgery - CABG, Hx Cholecystectomy, Hx Coronary Artery Bypass Graft - x3, Other - Right toe amputation as diabetic complication Review of Systems - Review of Systems Constitutional: No symptoms reported EENT: No symptoms reported Cardiovascular: No symptoms reported Respiratory: No symptoms reported Gastrointestinal: See HPI Genitourinary: No symptoms reported Musculoskeletal: No symptoms reported Skin: No symptoms reported Neurological/Psychological: No symptoms reported Physical Exam - Vital signs Vitals: Temp Pulse Resp BP Pulse Ox 97.5 F 66 16 98/47 L 95 01/07/19 11:58 01/07/19 11:58 01/07/19 11:58 01/07/19 11:58 01/07/19 11:58 - Notes Notes: Vital signs reviewed, please refer to chart. Head is normocephalic, atraumatic. Pupils equal round, reactive to light. Neck is supple without meningismus. Heart is regular rate and rhythm. Lungs are clear to auscultation bilaterally. Abdomen is soft, mildly tender in the epigastric and right upper quadrant, no rebound or guarding, normoactive bowel sounds throughout. Extremities without cyanosis, clubbing. Posterior calves are nontender. Peripheral pulses are equal. Skin is warm and dry. Patient is awake, alert, neurological exam is nonfocal. Course - Re-evaluation Re-evalutation: 01/07/19 13:46 Patient presents emergency department for evaluation of abdominal pain and diarrhea. He has had his symptoms overall for under 7 hours. His pain was sharp at first but is significantly improved without any sort of intervention. He only had 3 episodes of diarrhea, took Imodium, and has had none since then. He does not have a gallbladder. His pancreatic lipase is normal. Serial a bdominal exams are nonsurgical. I did discuss findings with the patient. At this point he has no significant abnormalities that are concerning. I did not feel an indication to image at this time, particularly given the short duration of symptoms. I explained to him that if his symptoms should persist, or he should develop worsening, he should return. He voiced understanding to this. Otherwise we will give him Bentyl here, have him follow-up with primary care, return to the ED with worsening or new concerning symptoms of any sort. - Vital Signs Vital signs: Temp Pulse Resp BP Pulse Ox 97.5 F 66 16 98/47 L 95 01/07/19 12:21 01/07/19 12:21 01/07/19 12:21 01/07/19 12:21 01/07/19 12:21 - Laboratory Result Diagrams: 01/07/19 12:10 01/07/19 12:10 Laboratory results interpreted by me: 01/07/19 01/07/19 12:10 12:10 WBC 11.1 H RDW 15.6 H Glucose 136 H Total Bilirubin 1.6 H AST 161 H ALT 76 H Discharge - Discharge Clinical Impression: Right upper quadrant pain Diarrhea Qualifiers: Diarrhea type: unspecified type Qualified Code(s): R19.7 - Diarrhea, unspecified Condition: Stable Disposition: HOME, SELF-CARE Instructions: Abdominal Pain ([facility]), Antispasmodics ([facility]), Diarrhea, Nonspecific ([facility]) Additional Instructions: No clear cause was found for your pain or diarrhea today. Rest, clear liquids, advance slowly to bland diet. If your pain worsens, or you develop new or concerning symptoms of any sort, return immediately to the emergency department for reevaluation. Referrals: KERMIT HANDY MD [ACTIVE STAFF] - Follow up as needed
[2019-01-07 14:41] VITALS: BP 148/52
== END 2019-01-07 14:41 | disposition home or self-care (01) ==
LOC: ER 11:40
DX: R10.11 Right upper quadrant pain (principal); R19.7 Diarrhea, unspecified; F17.200 Nicotine dependence, unspecified, uncomplicated; I25.10 Atherosclerotic heart disease of native coronary artery without angina pectoris; I10 Essential (primary) hypertension; E11.9 Type 2 diabetes mellitus without complications
CPT/HCPCS: 99284; 96374; 36415; 83690; 85025; 80053; J0500

== ENCOUNTER 2019-02-17 08:54 | Emergency (ER) | payer OTHER, MEDICARE ==
--- NOTE | 2019-02-17 09:14 | ER Document Report ---
ED Medical Screen (RME) - General Chief Complaint: Abscess Stated Complaint: ABSCESS/BACK Time Seen by Provider: 02/17/19 09:06 Primary Care Provider: ADRIANO SCHMIDT FNP [Primary Care Provider] - Follow up as needed Mode of Arrival: Ambulatory Information source: Patient Notes: 63-year-old male presented to ED for complaint of abscess to the middle of his back x1-1/2 weeks. He states he got much worse 4 days ago. He states it is now very red swollen and leaking. It is very painful to the palpation. He denies any previous abscesses in the past. He does have a history of diabetes high blood pressure high cholesterol coronary artery disease with triple bypass multiple venous stents throughout his body loss of his left great toe gallbladder surgery. Patient is alert oriented respirations regular nonlabored speaking in full sentences walks with even steady gait. TRAVEL OUTSIDE OF THE [place] IN LAST 30 DAYS: No - Related Data Allergies/Adverse Reactions: No Known Allergies Allergy (Verified 02/17/19 08:55) Past Medical History - Social History Chew tobacco use (# tins/day): No - Past Medical History Cardiac Medical History: Reports: Hx Coronary Artery Disease - CABG x3, Hx Hyp ertension, Hx Peripheral Vascular Disease - Left lower extremity stent placed about 2 months ago. Right lower extremity Endocrine Medical History: Reports: Hx Diabetes Mellitus Type 2 Renal/ Medical History: Denies: Hx Peritoneal Dialysis Psychiatric Medical History: Reports: Hx Depression Past Surgical History: Reports: Hx Cardiac Catheterization - stent, Hx Cardiac Surgery - CABG, Hx Cholecystectomy, Hx Coronary Artery Bypass Graft - x3, Other - Right toe amputation as diabetic complication Physical Exam - Vital signs Vitals: Temp Pulse Resp BP Pulse Ox 98.0 F 81 16 114/48 L 95 02/17/19 09:03 02/17/19 09:03 02/17/19 09:03 02/17/19 09:03 02/17/19 09:03 Course - Vital Signs Vital signs: Temp Pulse Resp BP Pulse Ox 98.0 F 81 16 114/48 L 95 02/17/19 09:03 02/17/19 09:03 02/17/19 09:03 02/17/19 09:03 02/17/19 09:03 Doctor's Discharge - Discharge Referrals: ADRIANO SCHMIDT FNP [Primary Care Provider] - Follow up as needed
[2019-02-17] MEDS ORDERED: LIDOCAINE 0.5%/EPINEPHRINE INJ 50 ML VIAL INJ ONE (10:22)
[2019-02-17] MEDS ORDERED: OXYCODONE-ACETAMINOPHEN 5-325 MG TABLET PO ONE (10:23)
--- NOTE | 2019-02-17 10:28 | ER Document Report ---
ED General - General Chief Complaint: Abscess Stated Complaint: ABSCESS/BACK Time Seen by Provider: 02/17/19 09:06 Primary Care Provider: ADRIANO SCHMIDT FNP [NO LOCAL MD] - Follow up as needed Mode of Arrival: Ambulatory TRAVEL OUTSIDE OF THE [place] IN LAST 30 DAYS: No - HPI Notes: Patient is a 63-year-old male who presents to the emergency department for evaluation. He has had a cyst on his back for years. Over the last week is gotten red, started draining. No fevers or chills. No nausea or vomiting. Eating and drinking normally. Taking his medications without difficulty. He is currently on Plavix as well as Xarelto. No history of abscesses or MRSA in the past. He states his pain is severe, rates it a 10 out of 10. States he has not been sleeping as a result of it. admits she tried to squeeze it and was unsuccessful in obtaining any purulence. - Related Data Allergies/Adverse Reactions: No Known Allergies Allergy (Verified 02/17/19 08:55) Past Medical History - General Information source: Patient - Social History Smoking Status: Current Every Day Smoker Chew tobacco use (# tins/day): No Family History: Reviewed & Not Pertinent Patient has suicidal ideation: No Patient has homicidal ideation: No - Past Medical History Cardiac Medical History: Reports: Hx Coronary Artery Disease - CABG x3, Hx Hypertension, Hx Peripheral Vascular Disease - Left lower extremity stent placed about 2 months ago. Right lower extremity Endocrine Medical History: Reports: Hx Diabetes Mellitus Type 2 Renal/ Medical History: Denies: Hx Peritoneal Dialysis Psychiatric Medical History: Reports: Hx Depression Past Surgical History: Reports: Hx Cardiac Catheterization - stent, Hx Cardiac Surgery - CABG, Hx Cholecystectomy, Hx Coronary Artery Bypass Graft - x3, Other - Right toe amputation as diabetic complication Review of Systems - Review of Systems Constitutional: No symptoms reported EENT: No symptoms reported Cardiovascular: No symptoms reported Respiratory: No symptoms reported Gastrointestinal: No symptoms reported Genitourinary: No symptoms reported Musculoskeletal: No symptoms reported Skin: See HPI Neurological/Psychological: No symptoms reported Physical Exam - Vital signs Vitals: Temp Pulse Resp BP Pulse Ox 98.0 F 81 16 114/48 L 95 02/17/19 09:03 02/17/19 09:03 02/17/19 09:03 02/17/19 09:03 02/17/19 09:03 - Notes Notes: This is a 63-year-old male who appears his stated age in no acute distress. Head is normocephalic and atraumatic. Pupils are equal round reactive to light. Oral mucosa is moist. Heart regular rate and rhythm, lungs clear to oscillation bilaterally. Examination of the skin of the back healed in approximately 4 cm abscess, surrounding erythema mild induration. There is some mucopurulent drainage noted from the center of the wound, but it is only about a 1 mm area. Course - Re-evaluation Re-evalutation: 02/17/19 10:28 Patient presents emergency department for evaluation. He is on multiple blood thinners, but this does not fact need an I&D. He was given 2 Percocet, I&D set up in room. 02/17/19 11:32 Patient tolerated I&D well. We will send him home with prescription for Bactrim. He was told that he will likely need to see his surgeon/remarketing rep for removal of this entire sebaceous cyst. He voiced understanding, [facility] He is to return to the ED with worsening or new concerning symptoms of any sort. - Vital Signs Vital signs: Temp Pulse Resp BP Pulse Ox 98.0 F 81 16 114/48 L 95 02/17/19 09:03 02/17/19 09:03 02/17/19 09:03 02/17/19 09:03 02/17/19 09:03 Discharge - Discharge Clinical Impression: Infected sebaceous cyst Condition: Stable Disposition: HOME, SELF-CARE Instructions: Abscess ([facility]), Post Incision and Drainage, Trimethoprim-Sulfa ([facility]) Additional Instructions: You will likely need referral on to a surgeon for further treatment of this cyst. Take all the antibiotics as prescribed until gone. Keep area clean with soap and water. If you develop fever, vomiting, or any other new concerning symptoms, return immediately to the emergency department for evaluation. Referrals: ADRIANO SCHMIDT FNP [NO LOCAL MD] - Follow up as needed
[2019-02-17 11:49] VITALS: BP 121/54
== END 2019-02-17 11:38 | disposition home or self-care (01) ==
LOC: ER 08:54
DX: L72.3 Sebaceous cyst (principal); L02.212 Cutaneous abscess of back [any part, except buttock and flank]; E11.51 Type 2 diabetes mellitus with diabetic peripheral angiopathy without gangrene; F17.200 Nicotine dependence, unspecified, uncomplicated; I25.10 Atherosclerotic heart disease of native coronary artery without angina pectoris; I10 Essential (primary) hypertension
CPT/HCPCS: 99283; 10060; J3490

== ENCOUNTER 2019-03-01 17:14 | Emergency (ER) | payer OTHER, MEDICARE ==
--- NOTE | 2019-03-01 17:43 | ER Document Report ---
ED Medical Screen (RME) - General Chief Complaint: Foot Pain Stated Complaint: RIGHT FOOT PAIN Time Seen by Provider: 03/01/19 17:36 Primary Care Provider: REX,JOSÉ MANUEL [Primary Care Provider] - Follow up as needed TRAVEL OUTSIDE OF THE [place] IN LAST 30 DAYS: No - HPI Notes: 03/01/19 17:41 Patient is a 63-year-old male with history of type 2 diabetes, peripheral arterial disease with grafting to the left lower extremity and stents to the right lower extremity, coronary artery disease with bypass, hypertension who presents complaining of wound to his right second toe that is been present for the past week status post cut to the toe. Patient states that he has had increased pain to his right leg when he ambulates as well with cramping/claudication. Patient is afraid that his arteries may be blocked again to his right leg. Denies drug allergies. Denies CASTANEDA, fever, neck pain, URI, CP, SOB, Abd pain, dysuria, back pain, or rash. I have treated and performed a rapid initial assessment of this patient. A comprehensive ED assessment and evaluation of the patient, analysis of test results and completion of medical decision making process will be conducted by additional ED providers. PHYSICAL EXAMINATION: GENERAL: Well-appearing, well-nourished and in no acute distress. A&Ox4. Answers questions appropriately. LUNGS: Breath sounds clear to auscultation bilaterally and equal. No wheezes rales or rhonchi. HEART: Regular rate and rhythm RLE: no palpable pulses noted. Cap refill <3 seconds. There is an ulcerated wound 2nd medial toe. + erythema/warmth to the foot. - Related Data Allergies/Adverse Reactions: No Known Allergies Allergy (Verified 03/01/19 17:18) Past Medical History - Past Medical History Cardiac Medical History: Reports: Hx Coronary Artery Disease - CABG x3, Hx Hypertension, Hx Peripheral Vascular Disease - Left lower extremity stent placed about 2 months ago. Right lower extremity Endocrine Medical History: Reports: Hx Diabetes Mellitus Type 2 Renal/ Medical History: Denies: Hx Peritoneal Dialysis Psychiatric Medical History: Reports: Hx Depression Past Surgical History: Reports: Hx Cardiac Catheterization - stent, Hx Cardiac Surgery - CABG, Hx Cholecystectomy, Hx Coronary Artery Bypass Graft - x3, Other - Right toe amputation as diabetic complication Physical Exam - Vital signs Vitals: Temp Pulse Resp BP Pulse Ox 97.7 F 81 16 121/53 L 96 03/01/19 17:23 03/01/19 17:23 03/01/19 17:23 03/01/19 17:23 03/01/19 17:23 Course - Vital Signs Vital signs: Temp Pulse Resp BP Pulse Ox 97.7 F 81 16 121/53 L 96 03/01/19 17:23 03/01/19 17:23 03/01/19 17:23 03/01/19 17:23 03/01/19 17:23 Doctor's Discharge - Discharge [facility]errals: [facility] [[facility] - Follow up as needed
--- NOTE | 2019-03-01 18:50 | RADIOLOGY REPORT (SQ) ---
EXAM DESCRIPTION: FOOT RIGHT COMPLETE COMPLETED DATE/TIME: 03/01/2019 6:40 pm REASON FOR STUDY: diabetic wound 2nd toe COMPARISON: None. NUMBER OF VIEWS: Three views. TECHNIQUE: AP, lateral and oblique radiographic images acquired of the right foot. LIMITATIONS: None. FINDINGS: MINERALIZATION: Normal. BONES: No acute fracture or dislocation. No umu 2nd toe osseous destruction. JOINTS: No effusions. SOFT TISSUES: No soft tissue swelling. No foreign body. Vascular calcifications. OTHER: No other significant finding. IMPRESSION: No definite radiographic findings of acute osteomyelitis involving the 2nd toe. TECHNICAL DOCUMENTATION: JOB ID: [id number] [employer]- All Rights Reserved Reading location - IP/workstation name: [email or web address]
[2019-03-01 18:51] LABS: ABSOLUTE BASOPHILS # (AUTO) 0.1 10^3/uL (0.0-0.2); ABSOLUTE EOSINOPHILS # (AUTO) 0.2 10^3/uL (0.0-0.6); ABSOLUTE LYMPHOCYTES (AUTO) 2.7 10^3/uL (0.5-4.7); ABSOLUTE MONOCYTES (AUTO) 1.2 10^3/uL (0.1-1.4); ABSOLUTE NEUT (AUTO) 11.2 10^3/uL (1.7-8.2); BASOPHILS % (AUTO) 0.8 % (0-2); EOSINOPHILS % (AUTO) 1.1 % (0-6); HEMATOCRIT 45.5 % (37.9-51.0); HEMOGLOBIN 15.1 g/dL (13.5-17.0); LYMPHOCYTES % (AUTO) 17.4 % (13-45); MEAN CORPUSCULAR HEMOGLOBIN 29.3 pg (27.0-33.4); MEAN CORPUSCULAR HGB CONC 33.3 g/dL (32.0-36.0); MEAN CORPUSCULAR VOLUME 88 fl (80-97); MONOCYTES % (AUTO) 7.8 % (3-13); PLATELET COUNT 323 10^3/uL (150-450); RED BLOOD COUNT 5.18 10^6/uL (4.35-5.55); RED CELL DISTRIBUTION WIDTH 15.5 % (11.5-14.0); SEGMENTED NEUTROPHILS % (AUTO) 72.9 % (42-78); TOTAL CELLS COUNTED % (AUTO) 100 %; WHITE BLOOD COUNT 15.3 10^3/uL (4.0-10.5)
[2019-03-01 18:54] LABS: INTERNATIONAL RATION (INR) 0.99; PARTIAL THROMBOPLASTIN TIME 30.9 SEC (23.5-35.8); PROTHROMBIN TIME 13.1 SEC (11.4-15.4)
[2019-03-01 19:04] LABS: ALBUMIN 4.3 g/dL (3.5-5.0); ALKALINE PHOSPHATASE 109 U/L (38-126); ANION GAP 11 (5-19); ASPARTATE AMINO TRANSFERASE 16 U/L (17-59); BILIRUBIN,DIRECT 0.2 mg/dL (0.0-0.4); BILIRUBIN,TOTAL 0.6 mg/dL (0.2-1.3); BLOOD UREA NITROGEN 12 mg/dL (7-20); CALCIUM 10.2 mg/dL (8.4-10.2); CARBON DIOXIDE 32 mmol/L (22-30); CHLORIDE 98 mmol/L (98-107); GLUCOSE 215 mg/dL (75-110); POTASSIUM 4.4 mmol/L (3.6-5.0); TOTAL PROTEIN 7.3 g/dL (6.3-8.2)
--- NOTE | 2019-03-01 19:50 | ER Document Report ---
ED Extremity Problem, Lower - General Chief Complaint: Foot Pain Stated Complaint: RIGHT FOOT PAIN Time Seen by Provider: 03/01/19 17:36 Primary Care Provider: REX,JOSÉ MANUEL [Primary Care Provider] - Follow up as needed Notes: Patient is a 63-year-old male who presents emergency department with a chief complaint of right foot pain. His pain started this morning. He has a history of peripheral vascular disease and is what prompted him to come to the emergency department. He states that he has had a sore in his right second toe for the past week. States that there is some new redness. Patient has a past surgical history of a right lower extremity stent and a left lower extremity graft. He is currently on Plavix and Xarelto. Patient has a history of a triple bypass, cholecystectomy. Denies any fever, body aches, chills or any other symptoms. TRAVEL OUTSIDE OF THE [place] IN LAST 30 DAYS: No - Related Data Allergies/Adverse Reactions: No Known Allergies Allergy (Verified 03/01/19 17:18) Past Medical History - General Information source: Patient - Social History Smoking Status: Current Every Day Smoker Frequency of alcohol use: None Drug Abuse: None Family History: Reviewed & Not Pertinent Patient has suicidal ideation: No Patient has homicidal ideation: No - Past Medical History Cardiac Medical History: Reports: Hx Coronary Artery Disease - CABG x3, Hx Hyper tension, Hx Peripheral Vascular Disease - Left lower extremity stent placed about 2 months ago. Right lower extremity Endocrine Medical History: Reports: Hx Diabetes Mellitus Type 2 Renal/ Medical History: Denies: Hx Peritoneal Dialysis Psychiatric Medical History: Reports: Hx Depression Past Surgical History: Reports: Hx Cardiac Catheterization - stent, Hx Cardiac Surgery - CABG, Hx Cholecystectomy, Hx Coronary Artery Bypass Graft - x3, Other - Right toe amputation as diabetic complication Review of Systems - Review of Systems Notes: REVIEW OF SYSTEMS: CONSTITUTIONAL : Denies recent illness. Denies recent unintentional weight loss. Denies fever, chills, or sweats. EENT: Denies eye, ear, throat, or mouth pain, discharge, or symptoms. Denies nasal or sinus congestion. CARDIOVASCULAR: Denies chest pain. RESPIRATORY: Denies shortness of breath, cough, congestion, difficulty breathing, or wheezing. GASTROINTESTINAL: Denies nausea, vomiting, and diarrhea. Denies abdominal pain. Denies constipation. GENITOURINARY: Denies difficulty urinating, burning, blood in urine, urgency or frequency. MUSCULOSKELETAL: See HPI SKIN: Denies rash, itchiness, or lesions HEMATOLOGIC : Denies easy bruising or bleeding. LYMPHATIC: Denies swollen, painful, enlarged glands. NEUROLOGICAL: Denies no numbness or tingling denies weakness. Denies headache. Denies altered mental status. Denies alteration in speech. PSYCHIATRIC: Denies stress, anxiety, alteration in sleep patterns, or depression. All other systems reviewed and negative. Physical Exam - Vital signs Vitals: Temp Pulse Resp BP Pulse Ox 97.7 F 81 16 121/53 L 96 03/01/19 17:23 03/01/19 17:23 03/01/19 17:23 03/01/19 17:23 03/01/19 17:23 - Notes Notes: PHYSICAL EXAMINATION: GENERAL: Appears stated age, well-nourished, no acute distress. HEAD: Normocephalic, atraumatic. EYES: PERRL, conjunctiva normal, all extraocular movements intact, sclera nonicteric ENT: Moist mucous membranes. NECK: Supple, no noticeable swelling, redness, rash. Normal range of motion. LUNGS: Equal breath sounds bilaterally and clear to auscultation. No wheezes rales or rhonchi. CARDIOVASCULAR: S1-S2, regular rate, regular rhythm. Radial pulses 2+, normal. Absent right dorsalis pedis and posterior tibial pulses ABDOMEN: Normoactive bowel sounds. Soft, nontender, no guarding, no rebound tenderness, and no masses palpated. EXTREMITIES: Normal strength and range of motion, no pitting or edema. No cyanosis. NEUROLOGICAL: Moves all extremities upon command. Strength 5/5 in all extremities. PSYCH: Normal mood, normal affect. SKIN: Warm, dry. Erythema with streaking noted to right dorsal foot from second toe up to foot. Diabetic foot ulcer noted to tip of right second toe. Course - Re-evaluation Re-evalutation: 03/01/19 20:26 Dr. Styles called me with a critical finding of a complete right femoral occlusion. Dr. Anthony, my attending physician will be consulted. 03/01/19 20:[address] Anthony and the patient will be started on a Heparin drip. [facility] will be called for transfer.The patient has a leukocytosis of 15,000. Chemistries are unremarkable. Coagulation studies are normal. 03/01/19 20:38 I spoke with [facility], but there are no open beds at this time, was not able to speak with the vacular surgeon senior sales operations manager. Will attempt [facility]. 03/01/19 20:44 I spoke with Estelle from [facility]. The vascular surgeon on-call is Dr. Arciniega. The images will be sent and Dr. Arciniega will give me a call back. 03/01/19 21:[address] Arciniega, the vascular surgeon at [facility]. And he states that the patient still has good collateral flow of his arteries. He would like to see the patient outpatient first thing in the morning and will assess him then. Dr. Arciniega would also like the patient to stop his anticoaulation medications because they are not able to perform surgery until has has been off his Xeralto for a few days. I then relayed this information to Dr. Anthony and he is stating that due to the patient having a diabetic foot ulcer with poor blood flow and a history of poor blood flow, it would be best to have the patient admitted for IV antibiotics. I will call Dr. Melendez. 03/01/19 21:[address] Melendez, hospitalist physician and he does not want to admit the patient at that time. He is recommending that the patient still follow-up with vascular surgeon in the morning and be treated outpatient with clindamycin. I have put in wound care orders for the patient's diabetic toe ulcer. I disc ussed with the patient the importance of following up with [facility]. He states that he will go there first thing in the morning. Follow-up precautions were given. Verbal discharge instructions were given to the patient. They verbalized understanding. They are stable for discharge. - Vital Signs Vital signs: Temp Pulse Resp BP Pulse Ox 98.5 F 81 15 144/61 H 97 03/01/19 23:43 03/01/19 17:23 03/01/19 23:12 03/01/19 23:12 03/01/19 23:12 - Laboratory Result Diagrams: 03/01/19 18:26 03/01/19 18:26 Laboratory results interpreted by me: 03/01/19 03/01/19 18:26 18:26 WBC 15.3 H RDW 15.5 H Absolute Neuts (auto) 11.2 H Carbon Dioxide 32 H Glucose 215 H AST 16 L Discharge - Discharge Clinical Impression: Peripheral vascular disease Diabetic foot ulcer Qualifiers: Diabetic foot ulcer location: toe Diabetes mellitus type: type 2 Laterality: right Non-pressure ulcer stage: unspecified non-pressure ulcer stage Qualified Code(s): E11.621 - Type 2 diabetes mellitus with foot ulcer Condition: Stable Disposition: HOME, SELF-CARE Additional Instructions: You were seen today in the emergency department for right foot pain. It is imperative that you follow-up with the vascular surgeon below in regards to this visit. Please follow-up with him first thing in the morning. The vascular surgeon's instructions are to not take your anticoagulant medications. You are also being started on antibiotics for your diabetic foot ulcer. Please have your antibiotics filled in the morning. You received a dose of antibiotics here in the emergency department. You are also being sent home with pain medication. You can take 1 tablet every 4-6 hours as needed for your pain. If you develop shortness of breath, difficulty breathing, worsening pain, or have any symptoms that are worrisome to you, please return to the emergency department. Office Hours: 8AM-5PM M-F Surgery - vascular surgery [address], [place] [address] [phone] DR. ARCINIEGA WANTS TO SEE THE PATIENT FIRST THING IN THE MORNING Prescriptions: Clindamycin HCl [Cleocin 150 mg Capsule] 300 mg PO Q6 7 Days #56 capsule [facility]errals: [facility] [[facility]] - Follow up as needed
[2019-03-01] MEDS ORDERED: HEPARIN SOD (PORCINE) 1,000 UNIT/ML 10 ML VIAL IV ONE (20:31)
[2019-03-01] MEDS ORDERED: HEPARIN SODIUM,PORCINE/D5W 25,000 UNIT/250 ML RTUINJ IV PRN (20:31)
[2019-03-01] MEDS ORDERED: HEPARIN SODIUM,PORCINE/D5W 25,000 UNIT/250 ML RTUINJ IV ONE (21:14)
[2019-03-01] MEDS ORDERED: HEPARIN SOD (PORCINE) 5,000 UNIT/ML 1 ML VIAL ONE (21:14)
[2019-03-01] MEDS ORDERED: HEPARIN SOD (PORCINE) 1,000 UNIT/ML 10 ML VIAL ONE (21:15)
[2019-03-01] MEDS ORDERED: CLINDAMYCIN 300 MG/D5W RTU 300 MG/50 ML RTUPB IV ONE (21:57)
[2019-03-01] MEDS ORDERED: HYDROCODONE/ACETAMINOPHEN 5-325 MG (6 TAB/ER DISP) PO PRN (22:45)
[2019-03-01] MEDS ORDERED: HEPARIN SOD (PORCINE) 1,000 UNIT/ML 10 ML VIAL IV PRN (23:32)
[2019-03-01 23:43] VITALS: BP 144/61
--- NOTE | 2019-03-02 02:54 | RADIOLOGY REPORT (SQ) ---
EXAM DESCRIPTION: US LOWER EXTREMITY ARTERIES LIMITED/UNILATERAL/FOLLOW UP COMPLETED DATE/TME: 03/01/2019 17:40 CLINICAL HISTORY: 63 years, Male, PAD RLE, no palp pulses COMPARISON: None. TECHNIQUE: Transverse and longitudinal sonographic images of the right lower extremity arterial system LIMITATIONS: None. FINDINGS: Atheromatous changes of the common femoral artery with monophasic waveforms. There is occlusion of the superficial femoral artery in its entirety. The popliteal artery appears occluded as well. There is equivocal visible flow associated with the posterior tibial artery and portions of the distal popliteal artery. However, accurate peak systolic velocities cannot be obtained due to significantly minimal flow. IMPRESSION: The common femoral artery appears patent proximally with occlusion distally and subsequent occlusion of the superficial femoral artery, popliteal artery, with only minimal visible flow involving the posterior tibial artery. copyright 2010 [employer]- All Rights Reserved
== END 2019-03-01 23:44 | disposition home or self-care (01) ==
LOC: ER 17:14
DX: I73.9 Peripheral vascular disease, unspecified (principal); E11.621 Type 2 diabetes mellitus with foot ulcer; L97.519 Non-pressure chronic ulcer of other part of right foot with unspecified severity; M79.671 Pain in right foot; Z79.01 Long term (current) use of anticoagulants; Z98.890 Other specified postprocedural states; F17.200 Nicotine dependence, unspecified, uncomplicated; I25.10 Atherosclerotic heart disease of native coronary artery without angina pectoris; I10 Essential (primary) hypertension; E11.9 Type 2 diabetes mellitus without complications
CPT/HCPCS: 96376; 99284; 96365; 96367; 36415; 87040; 85025; 85610; 85730; 80053; 93926; 73630; J1644 ×2; J3490